=== PATIENT | male | born 1960 | race Caucasian/White ===

== ENCOUNTER 2018-03-29 06:59 | Day surgery (SDC) | payer BC ==
[~2018-03-29] VITALS: Ht 177.8 cm; Wt 82.3 kg
[2018-03-29] VITALS (7 sets, daily range): BP systolic 107–128; BP diastolic 58–90; PULSE 63–91; TEMP 98
[~2018-03-29 06:59] MED LIST: 00186-0370-20 IH; NORCO 325 MG-51 TAB PO; ZOCOR 40MG40 MG PO
[2018-03-29] MEDS ORDERED: NORCO 325 MG-51 TAB PO (11:17)
== END 2018-03-29 12:45 | disposition home or self-care (01) ==
LOC: SDCO 06:59
DX: K40.90 Unilateral inguinal hernia, without obstruction or gangrene, not specified as recurrent (principal); J45.909 Unspecified asthma, uncomplicated
CPT/HCPCS: C1781; J0690; J1100; J1885; J2405; J2704; J3010; J7120